=== PATIENT | female | born 1990 | race Caucasian/White ===

== ENCOUNTER 2018-07-11 01:00 | Emergency (ER) | payer OTHER, SELFPAY ==
[2018-07-11 01:01] VITALS: BP 124/90; PULSE 71; RESP 16; TEMP 35.7; O2SAT 100; BMI 31.6
[2018-07-11] MEDS: Ondansetron 4 MG/2 ML Vial 8 MG IV (01:32)
--- NOTE | 2018-07-11 01:32 | ED.VISSUMM ---
- ER Visit Summary Date of Service: 07/11/18 Chief Complaint: Vomiting History of Present Illness: The patient is a 27 F who states that earlier today she was feeling fine. She went to her [id number]-uy-[id number]'s house and her ate the same food she did. They went home she had a couple beers and went to bed. In bed she developed nausea and has reported that she has been vomiting for the past 2 hours. No diarrhea. No fevers. No recent antibiotics. She notes nausea but no significant abdominal pain Physical Examination: Afebrile vital signs are stable Gen: Well-nourished well-developed Head: Normocephalic atraumatic Eyes: Perrl EOMI ENT: TMs clear no rhinorrhea moist mucous membranes Neck: Supple no lymphadenopathy no JVD nontender CVS: Regular rate rhythm no murmurs normal S1-S2 Respiratory: No distress clear to auscultation bilaterally chest nontender Abdomen: Soft nontender nondistended normal bowel sounds no masses Back: Nontender Extremity: Nontender no edema Skin: Normal color no rash Neuro: alert orientated ?3 CN II-XII intact normal strength sensation reflexes gait cerebellar Psych: Normal affect normal mood Test Results: [] Emergency Department Course and Treatment: Patient received IV Zofran. She was observed. Patient will be treated Zofran at home. Gentle fluid hydration. P.o. challenge will be given. Impression: 1. Vomiting This note was generated with [employer] dictation software. It may contain incorrect words, spelling, and punctuation that were not noted in review of the chart prior to signing ED Disposition - Plan for ED Patient: Disposition: Home or Assisted Living Chief Complaint: Nausea/Vomiting Instructions: ED Nausea Vomiting Prescriptions: Ondansetron [Zofran Odt] 4 mg PO Q8H PRN PRN #10 tab PRN Reason: Nausea Referrals: Marty Coe MD [Primary Care Provider] - As Needed
--- NOTE | 2018-07-11 01:36 | ED.DCSUM_ITS ---
- ER Visit Summary Date of Service: 07/11/18 Chief Complaint: Vomiting History of Present Illness: The patient is a 27 F who states that earlier today she was feeling fine. She went to her bhzdag-cn-hej's house and her ate the same food she did. They went home she had a couple beers and went to bed. In bed she developed nausea and has reported that she has been vomiting for the past 2 hours. No diarrhea. No fevers. No recent antibiotics. She notes nausea but no significant abdominal pain Physical Examination: Afebrile vital signs are stable Gen: Well-nourished well-developed Head: Normocephalic atraumatic Eyes: Perrl EOMI ENT: TMs clear no rhinorrhea moist mucous membranes Neck: Supple no lymphadenopathy no JVD nontender CVS: Regular rate rhythm no murmurs normal S1-S2 Respiratory: No distress clear to auscultation bilaterally chest nontender Abdomen: Soft nontender nondistended normal bowel sounds no masses Back: Nontender Extremity: Nontender no edema Skin: Normal color no rash Neuro: alert orientated ?3 CN II-XII intact normal strength sensation reflexes gait cerebellar Psych: Normal affect normal mood Test Results: [] Emergency Department Course and Treatment: Patient received IV Zofran. She was observed. Patient will be treated Zofran at home. Gentle fluid hydration. P.o. challenge will be given. Impression: 1. Vomiting This note was generated with [employer] dictation software. It may contain incorrect words, spelling, and punctuation that were not noted in review of the chart prior to signing ED Disposition - Plan for ED Patient: Disposition: Home or Assisted Living Chief Complaint: Nausea/Vomiting Instructions: ED Nausea Vomiting Prescriptions: Ondansetron [Zofran Odt] 4 mg PO Q8H PRN PRN #10 tab PRN Reason: Nausea Referrals: Marty Coe MD [Primary Care Provider] - As Needed
--- NOTE | 2018-07-11 05:39 | ED.RN ---
SEE DOWNTIME DOCUMENTATION FROM 0200 UNTIL 0334
--- OUTSIDE RECORDS SUMMARY | 2018-10-12 10:43 | XMS RPT_ITS ---
:1990 Author Organization [facility] Care Team Providers Name Role Phone EMIR JOLLYZ (INFORMATION SYSTEMS SPECIALIST) Attending Unavailable KRISTYN SIEGEL (INFORMATION SYSTEMS SPECIALIST) Attending Unavailable Marty Coe Primary Care Unavailable Pato Gregg Attending Unavailable PROBLEMS PROBLEMS No Problem Records FoundPROCEDURES PROCEDURES No Procedure Records FoundRESULTS RESULTS EMERGENCY DEPARTMENT Observed: 07/17/2018 Status: F Source: [place] 7:03 [place] [facility] [place] [facility] Medical Records Department [address] [place] [address] Emergency Department Summary 07/11/18 0132 MR#: [id number] Acct: [id number] Name: THANG WEST Rep #: [id number] : 1990 27 From: Pato Gregg DO PCP: Marty Coe MD Status: DEP ER - ER Visit Summary Date of Service: 07/11/18 Chief Complaint: Vomiting History of Present Illness: The patient is a 27 F who states that earlier today she was feeling fine. She went to her [id number]-[id number]'s house and her ate the same food she did. They went home she had a couple beers and went to bed. In bed she developed nausea and has reported that she has been vomiting for the past 2 hours. No diarrhea. No fevers. No recent antibiotics. She notes nausea but no significant abdominal pain Physical Examination: Afebrile vital signs are stable Gen: Well-nourished well-developed Head: Normocephalic atraumatic Eyes: Perrl EOMI ENT: TMs clear no rhinorrhea moist mucous membranes Neck: Supple no lymphadenopathy no JVD nontender CVS: Regular rate rhythm no murmurs normal S1-S2 Respiratory: No distress clear to auscultation bilaterally chest nontender Abdomen: Soft nontender nondistended normal bowel sounds no masses Back: Nontender Extremity: Nontender no edema Skin: Normal color no rash Neuro: alert orientated 3 CN II-XII intact normal strength sensation reflexes gait cerebellar Psych: Normal affect normal mood Test Results: [] Emergency Department Course and Treatment: Patient received IV Zofran. She was observed. Patient will be treated Zofran at home. Gentle fluid hydration. P.o. challenge will be given. Impression: 1. Vomiting This note was generated with [employer] dictation software. It may contain incorrect words, spelling, and punctuation that were not noted in review of the chart prior to signing ED Disposition - Plan for ED Patient: Disposition: Home or Assisted Living Chief Complaint: Nausea/Vomiting Instructions: ED Nausea Vomiting Prescriptions: Ondansetron [Zofran Odt] 4 mg PO Q8H PRN PRN #10 tab PRN Reason: Nausea Referrals: Marty Coe MD [Primary Care Provider] - As Needed What to do if you have Problems For any increased pain, shortness of breath, bleeding, nausea or vomiting, chest pain, or any unexpected problems, contact your Primary Care Provider. Call [facility] ([phone]) or report to the closest Emergency Room. Call 911 if necessary. 07/17/18 0703 <Electronically signed by Pato Gregg DO> Date Pato Gregg DO Cosigner Signature (If Indicated): Date CC: Marty Coe MD GC/CHLAMYDIA AMPLIF Collected: 05/25/2018 Status: F Source: [place] 8:30 AM [facility] REPOS[facility] TYPE CODE TESTS RESULT OUT OF REFERENCE UNITS RANGE LAB GCCTSR GC/Chlam Amp [facility] Source LAB GCAMPL GC Negative Amplification for Neisseria gonorrhoeae by amplification. LAB CLAMPL Chlamydia Negative Amplif for Chlamydia trachomatis by amplification. Performed By: #### GCCT #### [facility] [address] [place], [place] [address] PROGRESS Observed: 05/25/2018 Status: COMPLETED Source: [place] 8:15 AM [facility] REPOSITORY HNO ID: [id number] Author: Kristyn Gee) [place] Service: (none) Author Type: Nurse Practitioner Type: Progress Notes Filed: 05/25/2018 8:35 AM Note Text: Thang West is a 27 year old who presents for her annual gynecologic exam without complaints. Menses: cycles every 25-30 days and 3 days of flow. Contraception: none HPV vaccine: No Last Pap: 2016 normal HPV: N/A History of abnormal pap: Yes Last mammogram: never Sexually active: Yes Patient concerns for STD exposure: No. Pain with intercourse: No Postcoital bleeding: No Obstetric History T0 L0 SAB0 TAB0 Ectopic0 Multiple0 Live Births0 PAST MEDICAL HISTORY Diagnosis Date - Bicornate uterus No past surgical history on file. FAMILY HISTORY Problem Relation Age of Onset - Hypertension Maternal Grandmother - Stroke Maternal Grandmother - Cancer Maternal Grandfather Prostate Cancer - Heart Maternal Grandfather SOCIAL HISTORY Social History Substance Use Topics - Smoking status: Passive Smoke Exposure - Never Smoker - Smokeless tobacco: Never Used Comment: smoking in home - Alcohol use No REVIEW OF SYSTEMS Abdomen: No abdominal pain, nausea, vomiting, diarrhea, or constipation. No bloating, early satiety, indigestion, or increased flatulence. Bladder: No dysuria, gross hematuria, urinary frequency, urinary urgency, or incontinence. Breast: No breast lumps, nipple d/c, overlying skin changes, redness or skin retraction. Allergies and current medication updated:Yes EXAM: Ht 5' 5.25 (1.66m) Wt 191 lb (86.6kg) LMP 05/11/2018 BMI 31.55 kg/(m2). GENERAL: pleasant, female in no apparent distress HEENT: Normocephalic, atraumatic, mucus membranes moist and no lesions NECK: Supple, full range of motion, no adenopathy and thyroid normal DERMATOLOGY: Normal, without lesions, non-icteric and non-hirsute BREAST: soft, non-tender, symmetric, no dominant mass, normal nipple-areolar complex, no lymphadenopathy and no nipple discharge CHEST: Normal inspiratory effort ABDOMEN: soft, non-tender and no masses PELVIC: external genitalia normal, normal Bartholin's glands, urethra, Tynan's glands, no vulvar lesions, no cervical lesions, good vaginal support, physiologic discharge present, normal appearing perineal body and perianal region, well estrogenized BIMANUAL: uterus normal size, shape and consistency, no adnexal masses, non-tender and no cervical motion tenderness RECTOVAGINAL: deferred. NEURO: alert and oriented x3,exam grossly non-focal EXTREMITIES: normal ASSESSMENT/PLAN: 1) Health maintenance: Pap/HPV up to date. Mammogram starting age 40. Nutrition, exercise and routine health maintenance exams reviewed. Calcium/Vitamin D supplementation information provided. HPV vaccine: discussed, not interested 2) Contraception: oral contraceptives . Contraceptive options reviewed and information provided. 3) STD screening: Accepted STD check for Gonorrhea and Chlamydia. 4) Follow up one year or sooner as needed Kristyn Siegel APRN.CNP CNOV Observed: 05/25/2018 Status: COMPLETED Source: [place] 8:00 AM [facility] REPOSITORY Office Visit (WOOB) ELATHANG KEYS ([id number]) 1990 F Date Time Provider Department 05/25/18 8:00 AM KRISTYN SIEGEL ([place]) [facility] During your visit today, we recorded the following information about you: Blood pressure Weight Height Last Period 102/60 86.6 kg 1.657 m 05/11/18 Kristyn Siegel APRN.CNP 05/25/2018 8:35 AM Dion Cuellar Dewey is a 27 year old who presents for her annual gynecologic exam without complaints. Menses: cycles every 25-30 days and 3 days of flow. Contraception: none HPV vaccine: No Last Pap: 2017 normal HPV: N/A History of abnormal pap: Yes Last mammogram: never Sexually active: Yes Patient concerns for STD exposure: No. Pain with intercourse: No Postcoital bleeding: No Obstetric History T0 L0 SAB0 TAB0 Ectopic0 Multiple0 Live Births0 PAST MEDICAL HISTORY Diagnosis Date - Bicornate uterus No past surgical history on file. FAMILY HISTORY Problem Relation Age of Onset - Hypertension Maternal Grandmother - Stroke Maternal Grandmother - Cancer Maternal Grandfather Prostate Cancer - Heart Maternal Grandfather SOCIAL HISTORY Social History Substance Use Topics - Smoking status: Passive Smoke Exposure - Never Smoker - Smokeless tobacco: Never Used Comment: smoking in home - Alcohol use No REVIEW OF SYSTEMS Abdomen: No abdominal pain, nausea, vomiting, diarrhea, or constipation. No bloating, early satiety, indigestion, or increased flatulence. Bladder: No dysuria, gross hematuria, urinary frequency, urinary urgency, or incontinence. Breast: No breast lumps, nipple d/c, overlying skin changes, redness or skin retraction. Allergies and current medication updated:Yes EXAM: Ht 5' 5.25 (1.66m) Wt 191 lb (86.6kg) LMP 05/11/2018 BMI 31.55 kg/(m2). GENERAL: pleasant, female in no apparent distress HEENT: Normocephalic, atraumatic, mucus membranes moist and no lesions NECK: Supple, full range of motion, no adenopathy and thyroid normal DERMATOLOGY: Normal, without lesions, non-icteric and non-hirsute BREAST: soft, non-tender, symmetric, no dominant mass, normal nipple-areolar complex, no lymphadenopathy and no nipple discharge CHEST: Normal inspiratory effort ABDOMEN: soft, non-tender and no masses PELVIC: external genitalia normal, normal Bartholin's glands, urethra, Tynan's glands, no vulvar lesions, no cervical lesions, good vaginal support, physiologic discharge present, normal appearing perineal body and perianal region, well estrogenized BIMANUAL: uterus normal size, shape and consistency, no adnexal masses, non-tender and no cervical motion tenderness RECTOVAGINAL: deferred. NEURO: alert and oriented x3,exam grossly non-focal EXTREMITIES: normal ASSESSMENT/PLAN: 1) Health maintenance: Pap/HPV up to date. Mammogram starting age 40. Nutrition, exercise and routine health maintenance exams reviewed. Calcium/Vitamin D supplementation information provided. HPV vaccine: discussed, not interested 2) Contraception: oral contraceptives . Contraceptive options reviewed and information provided. 3) STD screening: Accepted STD check for Gonorrhea and Chlamydia. 4) Follow up one year or sooner as needed AUGUSTINA Madden APRN.CNP 05/25/2018 8:31 AM Signed Oral Contraceptives: The Pill Beginning the Pill Pills come in either a 21 day pack or a 28 day pack. With the 21 day pack you will take one pill for 21 days then no pill for 7 days, during which time you will have what is known as withdrawal bleeding. The 28 day pack allows you to take a pill every day of the cycle with no interruptions. The first 21 pills are the pills with the active ingredients and the last 7 are the nonmedical pills (placebo) or they may contain iron. There will be bleeding during the week you are taking the nonmedical pills. The advantage to the 28 day pack is that you don?t have to keep track of when you stopped the pill. ? Unless otherwise instructed, you should start your pills the Tuesday following your first day of bleeding with your next period (if your period starts on a Tuesday, you should start pills the same day) ? Read your information packet that comes with the pills. Pill Benefits The pill is the most popular method of reversible control being used today. Millions of women rely on oral contraceptives as their control method. It is important to have an examination by your physician to determine if the pill is safe for you. There are several advantages associated with the pill: it is 97-98% effective; may improve acne; periods are more regular and less painful; there is less iron deficiency anemia in pill users. residential use is associated with a decreased incidence of ovarian and uterine cancer. There is also no evidence that the pill increases the incidence of any cancer. How Oral Contraceptives Work Oral contraceptives come in two varieties. One is the combination pill which contains both estrogen and progesterone. Combination pills are considered 98-99% effective in preventing . This pill comes in either monophasic, which delivers the same amount of estrogen and progesterone throughout the cycle; and triphasic, which try tries to mimic the normal hormone cycle by changing the levels of the hormones in the pills during the month. There is no real advantage to taking the one over the other. The other type of pill only contains progesterone. It is best used for women who can?t take estrogen. This type of pill is slightly less effective than the combination pill in preventing . Oral contraceptives prevent ovulation (release of an egg from the ovary) by suppressing the pituitary gland?s action. The pill does NOT prevent sexually transmitted disease. Obtaining a Prescription ? It is important to see your doctor before starting oral contraceptives so that you can have a full medical history taken and a physical examination given. Certain medical conditions may make the pill inappropriate for you, therefore it is very important to be honest and as complete as possible with the information you share with your doctor. The types of predisposing factors which would make the pill a poor choice of control would include: ? History of blood clots ? Stroke ? Serious liver disease or impaired liver function ? Unexplained vaginal bleeding or ? Cancer of the reproductive system ? Active gall bladder disease ? Hypertension Possible Side Effects It can take up to three months for your body to become adjusted to the pill. The more common side effects experienced at this time are: breakthrough spotting or bleeding, which is bleeding at any other time other than when you should be having a period; nausea or vomiting; breast tenderness; and mild fluid retention. There is no maintenance scheduler weight gain with the use of the pill. Breakthrough bleeding is the most common complaint of new pill users. There is no way to predict who will have it and there is no way of preventing it. Breakthrough bleeding usually subsides on its own with no further treatment after the first three months of taking the pill. If these symptoms continue to occur after the first three months you should check with your physician to see if there is any physical cause and possibly change to another control pill. Problems: 1. Missed 1 pill: Take 2 pills the next day. 2. Missed 2 pills: Take 2 pills the next day and 2 pills the following day. Also use another form of control (condoms) along with the pill for the rest of the month. 3. Missed 3 or more pills: You have two choices. You can take two pills each day until you are on schedule, plus use an additional form of control along with the pill for the rest of the month. Or you can stop the pill and start a completely new pack of pills the next Tuesday. You must use another form of control with the pill for at least the first two weeks of the new pack. 4. You?re ill and you have been vomiting or have diarrhea: You must use another form of control with the pill since the pill may not be fully absorbed during your illness. Continue to use the added control until the end of the cycle. 5. Desire to become : Stop using the pill for one month before trying to become . 6. Taking other medications: The control pill is less effective when you take the antibiotic Rifampin, epilepsy (seizure) drugs such as phenytoin, carbamazepine, phenobarbital, topiramate and some medications for HIV. Let your doctor know if you start taking any of these medications while on the pill. Symptoms to Notify Your Doctor with Immediately: 1. Pain in your chest or legs 2. Continuous blurred vision 3. Severe headaches 4. Slurred speech 5. Tingling or weakness on one side of your body 6. Shortness of breath 7. Swelling of one leg Refills of Control Pills You need to see a doctor every year for a refill of your prescription. This is necessary in order that your health can be monitored closely while you are taking control pills. If your prescription should before your next scheduled appointment you can usually get a one month extension from your doctors office if you call during regular business hours about one week before you need to start the new package of pills. This allows the physician to refer to your chart for necessary health information. Referring Provider: SELF [[id number]] Allergies As of Date: 05/25/2018 Noted Allergy Reaction BEES 04/27/2005 7 - Swelling DANDELION (TARAXACUM OFFICINALE) 04/27/2005 3 - Cough Comments: CONGESTION LATEX 09/04/2005 2 - Rash Comments: Latex bandages per Mom Date Reviewed: 05/25/2018 Reviewed by: Kristyn ([facility]) [place] - Fully Assessed Reason for Visit: Yearly Exam [187] Primary Visit Diagnosis:Encounter for gynecological examination (general) (routine) without abnormal findings [Z01.419] Other Visit Diagnoses:Screen for STD (sexually transmitted disease) [Z11.3] Dysmenorrhea [N94.6] General counseling for prescription of oral contraceptives [Z30.09] Order(s):GC/CHLAMYDIA DNA DET [SQGCCAMP] Order #: [id number] norgestimate 0.25 mg-ethinyl estradiol 35 mcg (SPRINTEC) 0.25-35 mg-mcg per tabletTake 1 tablet by mouth once daily.Disp: 3 PackageRfl: 3 Prescriptions as of 05/25/2018 Sig: EPINEPHRINE 0.3 MG/0.3 ML INJ* Inject 0.3 mL intramuscularly* CAMELIA 60 MG TABLET Take one(1) tablet twice sharon* NORGESTIMATE 0.25 MG-ETHINYL * Take 1 tablet by mouth once d* Problem List As Of Date 05/25/2018 Noted Resolved Bicornate uterus [Q51.3] INVALID FOR* Dysmenorrhea [N94.6] INVALID FOR* Other instructions from your clinician: Oral Contraceptives: The Pill Beginning the Pill Pills come in either a 21 day pack or a 28 day pack. With the 21 day pack you will take one pill for 21 days then no pill for 7 days, during which time you will have what is known as withdrawal bleeding. The 28 day pack allows you to take a pill every day of the cycle with no interruptions. The first 21 pills are the pills with the active ingredients and the last 7 are the nonmedical pills (placebo) or they may contain iron. There will be bleeding during the week you are taking the nonmedical pills. The advantage to the 28 day pack is that you don?t have to keep track of when you stopped the pill. ? Unless otherwise instructed, you should start your pills the Tuesday following your first day of bleeding with your next period (if your period starts on a Tuesday, you should start pills the same day) ? Read your information packet that comes with the pills. Pill Benefits The pill is the most popular method of reversible control being used today. Millions of women rely on oral contraceptives as their control method. It is important to have an examination by your physician to determine if the pill is safe for you. There are several advantages associated with the pill: it is 97-98% effective; may improve acne; periods are more regular and less painful; there is less iron deficiency anemia in pill users. district leader use is associated with a decreased incidence of ovarian and uterine cancer. There is also no evidence that the pill increases the incidence of any cancer. How Oral Contraceptives Work Oral contraceptives come in two varieties. One is the combination pill which contains both estrogen and progesterone. Combination pills are considered 98-99% effective in preventing . This pill comes in either monophasic, which delivers the same amount of estrogen and progesterone throughout the cycle; and triphasic, which try tries to mimic the normal hormone cycle by changing the levels of the hormones in the pills during the month. There is no real advantage to taking the one over the other. The other type of pill only contains progesterone. It is best used for women who can?t take estrogen. This type of pill is slightly less effective than the combination pill in preventing . Oral contraceptives prevent ovulation (release of an egg from the ovary) by suppressing the pituitary gland?s action. The pill does NOT prevent sexually transmitted disease. Obtaining a Prescription ? It is important to see your doctor before starting oral contraceptives so that you can have a full medical history taken and a physical examination given. Certain medical conditions may make the pill inappropriate for you, therefore it is very important to be honest and as complete as possible with the information you share with your doctor. The types of predisposing factors which would make the pill a poor choice of control would include: ? History of blood clots ? Stroke ? Serious liver disease or impaired liver function ? Unexplained vaginal bleeding or ? Cancer of the reproductive system ? Active gall bladder disease ? Hypertension Possible Side Effects It can take up to three months for your body to become adjusted to the pill. The more common side effects experienced at this time are: breakthrough spotting or bleeding, which is bleeding at any other time other than when you should be having a period; nausea or vomiting; breast tenderness; and mild fluid retention. There is no intermediate weight gain with the use of the pill. Breakthrough bleeding is the most common complaint of new pill users. There is no way to predict who will have it and there is no way of preventing it. Breakthrough bleeding usually subsides on its own with no further treatment after the first three months of taking the pill. If these symptoms continue to occur after the first three months you should check with your physician to see if there is any physical cause and possibly change to another control pill. Problems: 1. Missed 1 pill: Take 2 pills the next day. 2. Missed 2 pills: Take 2 pills the next day and 2 pills the following day. Also use another form of control (condoms) along with the pill for the rest of the month. 3. Missed 3 or more pills: You have two choices. You can take two pills each day until you are on schedule, plus use an additional form of control along with the pill for the rest of the month. Or you can stop the pill and start a completely new pack of pills the next Tuesday. You must use another form of control with the pill for at least the first two weeks of the new pack. 4. You?re ill and you have been vomiting or have diarrhea: You must use another form of control with the pill since the pill may not be fully absorbed during your illness. Continue to use the added control until the end of the cycle. 5. Desire to become : Stop using the pill for one month before trying to become . 6. Taking other medications: The control pill is less effective when you take the antibiotic Rifampin, epilepsy (seizure) drugs such as phenytoin, carbamazepine, phenobarbital, topiramate and some medications for HIV. Let your doctor know if you start taking any of these medications while on the pill. Symptoms to Notify Your Doctor with Immediately: 1. Pain in your chest or legs 2. Continuous blurred vision 3. Severe headaches 4. Slurred speech 5. Tingling or weakness on one side of your body 6. Shortness of breath 7. Swelling of one leg Refills of Control Pills You need to see a doctor every year for a refill of your prescription. This is necessary in order that your health can be monitored closely while you are taking control pills. If your prescription should before your next scheduled appointment you can usually get a one month extension from your doctors office if you call during regular business hours about one week before you need to start the new package of pills. This allows the physician to refer to your chart for necessary health information. Prescriptions ordered this encounter Disp Refills Start End NORGESTIMATE 0.25 MG-ETHINYL ESTRADI* 3 Pa* 3 05/25/2018 Route: ORAL Sig: Take 1 tablet by mouth once daily. Disposition: Return in 1 year (on 05/25/2019) for Annual Exam. Follow-up and Disposition History Recorded Encounter Status:Closed by KRISTYN SIEGEL on 05/25/18 PROGRESS Observed: 01/18/2018 Status: COMPLETED Source: [place] 9:42 AM [facility] [place] REPOSITORY HNO ID: [id number] Author: Margarette (Dionte) [place] Service: (none) Author Type: Nurse Practitioner Type: Progress Notes Filed: 01/18/2018 9:54 AM Note Text: CC: Patient presents with: Physical epipen refill HPI Thang West is a 27 year old female who presents today for annual physical exam. Needs refill on Epi pen for bee sting allergy. Has not required use of one ever but would like to have on hand just in case. Denies any other concerns or issues today. REVIEW OF SYSTEMS General: no fevers, no chills, no night sweats, no recurrent infections, no change in appetite, no change in energy and no significant changes in weight HEENT: no frequent or significant headaches, no changes in hearing, no visual changes Neck: no lumps, no pain and no swelling Respiratory: no cough, no wheezing, no shortness of breath Cardiovascular: no chest pain, no chest pressure, no palpitations and no swelling GI: Negative for abdominal discomfort, blood in stools or black stools, change in bowel habit, heart burn, nausea, vomiting : No difficulty urinating, nocturia > 1 time per night or hematuria Musculoskeletal: Negative for joint pain or swelling, back pain or muscle pain Skin: Negative for lesions, rash, and itching PAST MEDICAL HISTORY Diagnosis Date - Bicornate uterus No past surgical history on file. ALLERGIES Bees; Dandelion (Taraxacum Officinale); Latex MEDICATIONS EPINEPHrine (EPIPEN) 0.3 mg/0.3 mL auto-injector Inject 0.3 mL intramuscularly as directed. Use 1 injection for respiratory distress and/or shock following an allergic reaction. fexofenadine hcl(CAMELIA 60 MG TAB) Take one(1) tablet twice daily. FAMILY HISTORY Problem Relation Age of Onset - Hypertension Maternal Grandmother - Stroke Maternal Grandmother - Cancer Maternal Grandfather Prostate Cancer - Heart Maternal Grandfather Social History Substance Use Topics - Smoking status: Passive Smoke Exposure - Never Smoker - Smokeless tobacco: Never Used Comment: smoking in home - Alcohol use No PHYSICAL EXAM BP 120/90 Pulse 80 Temp 36.7 ?C (98 ?F) (Temporal Artery) Resp 14 Wt 94.2 kg (207 lb 9.6 oz) SpO2 98% BMI 34.55 kg/m? General Appearance: well appearing, in no acute distress, alert Pysch: mood and affect broad and appropriate Skin: Skin color, texture, turgor normal for age; Eyes: conjunctiva pink and moist, no icterus, sclera white, non-injected Neck: Thyroid normal size and symmetric without palpable nodules, Neck supple, No adenopathy Oropharynx: lips normal without lesions, tongue midline and normal, soft palate, uvula, and tonsils normal Lymph nodes: No supraclavicular lymphadenopathy Lungs: Lungs clear to auscultation. No wheezing, rhonchi, rales Heart: RRR without murmur, gallop, or rubs. No ectopy Extremities: No deformities, edema, skin discoloration, clubbing or cyanosis. Good capillary refill. , Pulses: 2+ HPV VACCINE(1 of 3 - Female 3 Dose Series) due on 2003 DTAP,TDAP,TD(7 - Td) due on 09/19/2016 INFLUENZA(Season Ended) due on 03/25/2018 PAP EVERY 3 YEARS (21-30 YEAR OLDS) due on 03/29/2020 ASSESSMENT/PLAN: 1. Encounter for preventative adult health care examination - ICD9: V70.0, ICD10: Z00.00 Discussed health maintenance, including regular aerobic exercise, low fat diet, and periodic exams. - Recommended regular aerobic exercise. - Discussed need and benefit for weight loss. BMI 34.55 kg/(m2) - Vaccination(s) today of Tdap and HPV. Patient declines for now - Follow up for annual exam in one year. Margarette Jolly APRN.CNP CNOV Observed: 01/18/2018 Status: COMPLETED Source: [place] 9:20 AM [facility] REPOSITORY Office Visit (INTMWS) THANG WEST ([id number]) 1990 F Date Time Provider Department 01/18/18 9:20 AM MARGARETTE JOLLY (DIONTE) INTJ[facility]minWS During your visit today, we recorded the following information about you: Temperature Pulse Respiration Blood pressure 98 degrees 80/minute 14/minute 118/82 Weight 94.2 kg Maragrette Jolly APRN.CNP 01/18/2018 9:54 AM Signed CC: Patient presents with: Physical epipen refill HPI Thang West is a 27 year old female who presents today for annual physical exam. Needs refill on Epi pen for bee sting allergy. Has not required use of one ever but would like to have on hand just in case. Denies any other concerns or issues today. REVIEW OF SYSTEMS General: no fevers, no chills, no night sweats, no recurrent infections, no change in appetite, no change in energy and no significant changes in weight HEENT: no frequent or significant headaches, no changes in hearing, no visual changes Neck: no lumps, no pain and no swelling Respiratory: no cough, no wheezing, no shortness of breath Cardiovascular: no chest pain, no chest pressure, no palpitations and no swelling GI: Negative for abdominal discomfort, blood in stools or black stools, change in bowel habit, heart burn, nausea, vomiting : No difficulty urinating, nocturia > 1 time per night or hematuria Musculoskeletal: Negative for joint pain or swelling, back pain or muscle pain Skin: Negative for lesions, rash, and itching PAST MEDICAL HISTORY Diagnosis Date - Bicornate uterus No past surgical history on file. ALLERGIES Bees; Dandelion (Taraxacum Officinale); Latex MEDICATIONS EPINEPHrine (EPIPEN) 0.3 mg/0.3 mL auto-injector Inject 0.3 mL intramuscularly as directed. Use 1 injection for respiratory distress and/or shock following an allergic reaction. fexofenadine hcl(CAMELIA 60 MG TAB) Take one(1) tablet twice daily. FAMILY HISTORY Problem Relation Age of Onset - Hypertension Maternal Grandmother - Stroke Maternal Grandmother - Cancer Maternal Grandfather Prostate Cancer - Heart Maternal Grandfather Social History Substance Use Topics - Smoking status: Passive Smoke Exposure - Never Smoker - Smokeless tobacco: Never Used Comment: smoking in home - Alcohol use No PHYSICAL EXAM BP 120/90 Pulse 80 Temp 36.7 ?C (98 ?F) (Temporal Artery) Resp 14 Wt 94.2 kg (207 lb 9.6 oz) SpO2 98% BMI 34.55 kg/m? General Appearance: well appearing, in no acute distress, alert Pysch: mood and affect broad and appropriate Skin: Skin color, texture, turgor normal for age; Eyes: conjunctiva pink and moist, no icterus, sclera white, non-injected Neck: Thyroid normal size and symmetric without palpable nodules, Neck supple, No adenopathy Oropharynx: lips normal without lesions, tongue midline and normal, soft palate, uvula, and tonsils normal Lymph nodes: No supraclavicular lymphadenopathy Lungs: Lungs clear to auscultation. No wheezing, rhonchi, rales Heart: RRR without murmur, gallop, or rubs. No ectopy Extremities: No deformities, edema, skin discoloration, clubbing or cyanosis. Good capillary refill. , Pulses: 2+ HPV VACCINE(1 of 3 - Female 3 Dose Series) due on 2003 DTAP,TDAP,TD(7 - Td) due on 09/19/2016 INFLUENZA(Season Ended) due on 03/25/2018 PAP EVERY 3 YEARS (21-30 YEAR OLDS) due on 03/29/2020 ASSESSMENT/PLAN: 1. Encounter for preventative adult health care examination - ICD9: V70.0, ICD10: Z00.00 Discussed health maintenance, including regular aerobic exercise, low fat diet, and periodic exams. - Recommended regular aerobic exercise. - Discussed need and benefit for weight loss. BMI 34.55 kg/(m2) - Vaccination(s) today of Tdap and HPV. Patient declines for now - Follow up for annual exam in one year. AUGUSTINA Yan APRN.CNP 01/18/2018 9:48 AM Signed HEALTH MAINTENANCE RECOMMENDATIONS You are due for the following preventative care screenings and immunizations: HPV vaccine - 9 years to 26 years of age: Prevention of genital warts and cervical cancer. Tetanus vaccine (will include whooping cough vaccine) for age 65 and under We all can help regulate our body's health. Start by making the following changes in your health plan: 1. If you smoke, stop smoking! [id number], or talk to your doctor for further help. 2. Walk 30 minutes per day. Get a duy... it makes it easier and fun! Add 20 minutes of weight resistant exercises per week. 3. AVOID the following foods, they age us: -Saturated fats (look at the nutrition label) -Trans fats (Look on the nutrition label) -Simple sugars (those are the candies, pastries, cakes; they break down quicker and store as fat, harden our arteries) -Simple carbohydrates (like white starches; Do whole grain instead. Look at the fiber content, the more fiber the better for you) -Enriched Flour (do whole grain instead- it's listed on the ingredient section of food nutrition labels) 4. CALCIUM: 1000mg elemental calcium for premenopausal women age 19-50 1200mg elemental calcium for postmenopausal women and all women over 50. If you are not able to obtain the recommended amount of calcium from your diet, a supplement is recommended - just be sure the one you purchase contains Vitamin D. VITAMIN D: Recommended intake according to the National Institutes of Health is 600 International Units (IU) for girls and women ages 1-70 and 800 IU for women over 70. Very few foods in nature contain vitamin D. Referring Provider: SELF [200] Allergies As of Date: 01/18/2018 Noted Allergy Reaction BEES 04/27/2005 7 - Swelling DANDELION (TARAXACUM OFFICINALE) 04/27/2005 3 - Cough Comments: CONGESTION LATEX 09/04/2005 2 - Rash Comments: Latex bandages per Mom Date Reviewed: 01/18/2018 Reviewed by: Fatoumata Rogers Stonemason - Fully Assessed Reason for Visit: Physical [83] epipen refill [Other] Primary Visit Diagnosis:Encounter for preventative adult health care examination [Z00.00] Order(s):EPINEPHrine (EPIPEN) 0.3 mg/0.3 mL auto-injectorInject 0.3 mL intramuscularly as directed. Use 1 injection for respiratory distress and/or shock following an allergic reaction.Disp: 2 EachRfl: 2 Prescriptions as of 01/18/2018 Sig: EPINEPHRINE 0.3 MG/0.3 ML INJ* Inject 0.3 mL intramuscularly* CAMELIA 60 MG TABLET Take one(1) tablet twice sharon* Problem List As Of Date 01/18/2018 Noted Resolved Bicornate uterus [Q51.3] INVALID FOR* Dysmenorrhea [N94.6] INVALID FOR* Other instructions from your clinician: HEALTH MAINTENANCE RECOMMENDATIONS You are due for the following preventative care screenings and immunizations: HPV vaccine - 9 years to 26 years of age: Prevention of genital warts and cervical cancer. Tetanus vaccine (will include whooping cough vaccine) for age 65 and under We all can help regulate our body's health. Start by making the following changes in your health plan: 1. If you smoke, stop smoking! [id number], or talk to your doctor for further help. 2. Walk 30 minutes per day. Get a duy... it makes it easier and fun! Add 20 minutes of weight resistant exercises per week. 3. AVOID the following foods, they age us: -Saturated fats (look at the nutrition label) -Trans fats (Look on the nutrition label) -Simple sugars (those are the candies, pastries, cakes; they break down quicker and store as fat, harden our arteries) -Simple carbohydrates (like white starches; Do whole grain instead. Look at the fiber content, the more fiber the better for you) -Enriched Flour (do whole grain instead- it's listed on the ingredient section of food nutrition labels) 4. CALCIUM: 1000mg elemental calcium for premenopausal women age 19-50 1200mg elemental calcium for postmenopausal women and all women over 50. If you are not able to obtain the recommended amount of calcium from your diet, a supplement is recommended - just be sure the one you purchase contains Vitamin D. VITAMIN D: Recommended intake according to the National Institutes of Health is 600 International Units (IU) for girls and women ages 1-70 and 800 IU for women over 70. Very few foods in nature contain vitamin D. Prescriptions ordered this encounter Disp Refills Start End EPINEPHRINE 0.3 MG/0.3 ML INJECTION,* 2 Ea* 2 01/18/2018 Route: INTRAMUSCULA Sig: Inject 0.3 mL intramuscularly as directed. Use 1 injection for respiratory distress and/or shock following an allergic reaction. Medications Discontinued During This Encounter fluticasone propionate(FLONASE 50 MC* 1 2 03/28/2009 01/18/2018 Route: NASAL Si spray per nostril once a day prn nasal allergy symptoms Disc: Reason for discontinue is not on file. norgestimate 0.25 mg-ethinyl estradi* 3 Pa* 0 02/16/2017 01/18/2018 Route: ORAL Sig: Take 1 tablet by mouth once daily. Disc: Reason for discontinue is not on file. EPINEPHrine (EPIPEN) 0.3 mg/0.3 mL a* 2 Ea* 12 11/11/2015 01/18/2018 Class: Print RX Route: INTRAMUSCULAR Sig: Inject 0.3 mL intramuscularly as directed. Use 1 injection for respiratory distress and/or shock following an allergic reaction. A repeat dosage may be required for every 10-20 minutes of travel time to a medical emergency facility. (1 injection contains 0.3 ml)) Disc: Reason for discontinue is not on file. Encounter Status:Closed by MARGARETTE JOLLY CNP on 01/18/18 ALLERGIES ALLERGIES DATE TYPE / CODE NAME / CODE REACTION SEVERITY SOURCE 07/11/2018 Drug dandelion Rash Unknown [place] All[facility]/416 ([facility] [id number](SNOM officinale)/F[address] [facility] [address] [facility]) [id number](RXNORM) Repository 07/11/2018 Drug venom-honey Anaphylaxis Unknown [place] Allergy/416 bee/[id number](R [facility] [id number]([facility]) [facility] ED CT) Repository 07/11/2018 Drug latex/[id number] Rash Unknown [place] Allergy/416 (RXNORM) [facility] [id number]([facility] ED CT) Repository 09/04/2005 DRUG LATEX RASH [facility] INGREDI/[address] [place] [id number]([facility] Repository ED CT) 04/27/2005 Environ/420 BEES SWELLING [facility] [id number]([facility] ED CT) Repository 04/27/2005 DRUG DANDELION COUGH [facility] INGREDI/419 ([facility] [id number]([facility]) Repository ED CT) ENCOUNTERS ENCOUNTERS ADMIT/DISCHARGE ACCOUNT ADMITTING ENCOUNTER LOCATION SOURCE NUMBER CLASS 07/11/2018/07/11/20 [id number] Emergency [place] [facility] ing:ED Repository 05/25/2018/05/26/20 [id number] Ambulatory [address] [place] Repository 01/18/2018/01/20/20 [id number] Ambulatory [address] Repository PAYERS PAYERS ENCOUNTER GUARANTOR PAYER SUBSCRIBER SOURCE 07/11/2018 THANG [place] Primary THANG [id number] Insurance:Nicole CARBAJAL: [facility] JAMES Number: [id number], [place] [id number] Repository 64478Qyt: (330) Date:[id number] [phone] () [id number] [address]WT: 07/11/2018 Secondary NOT GIVENUNK [place] Insurance:SELF [facility]Y [facility]: Effective Repository Date:2018-07-11
== END 2018-07-11 02:55 | disposition home or self-care (01) ==
LOC: ED 01:50
PROVIDERS: Emergency Provider Emergency Medicine; Family Provider Pediatrics; PCP Pediatrics
DX: R11.2 Nausea with vomiting, unspecified (principal)
CPT/HCPCS: 96374; 99281; A4216; J2405